=== PATIENT | female | born 1980 | race African-American/Black ===

== ENCOUNTER 2021-10-01 23:38 | Emergency (ER) | payer MEDICAID ==
[~2021-10-01] VITALS: Ht 157.5 cm; Wt 55.0 kg
[2021-10-02 00:17] VITALS: BP 118/75
[2021-10-02 02:33] LABS: CHLORIDE 107 mEq/L (98-107)
[2021-10-02 02:34] LABS: HEMOGLOBIN. 12.7 g/dL (12.0-16.0); MEAN CORPUSCULAR HEMOGLOBIN 33.7 pg (28.0-32.0); MEAN CORPUSCULAR VOLUME 97.8 fL (81.0-99.0); MEAN PLATELET VOLUME 7.9 fl (7.4-10.4); PLATELET 285 x1000/uL (130-400); RED BLOOD CELL COUNT 3.78 mill/uL (4.2-5.4); RED CELL DISTRIBUTION WIDTH 12.5 % (11.6-14.6)
[2021-10-02 02:43] LABS: B-HCG QUANTITATIVE < 1 mIU/mL (<3)
[2021-10-02] MEDS ORDERED: KETOROLAC 30MG/ML VIAL IM ONE (03:15)
[2021-10-02 05:54] LABS: PLATELET ESTIMATE NORMAL
[2021-10-04 07:10] LABS: NEISSERIA GONORRHOEAE NAA Negative (Negative)
== END 2021-10-02 04:07 | disposition home or self-care (01) ==
LOC: ER 23:38
DX: N93.9 Abnormal uterine and vaginal bleeding, unspecified (principal)
CPT/HCPCS: 36415; 80053; 81025; 84702; 85025; 86850; 86900; 86901; 87491; 87591; 96372; 99284; J1885

== ENCOUNTER 2021-10-26 06:02 | Emergency (ER) | payer MEDICAID ==
[~2021-10-26] VITALS: Ht 157.5 cm; Wt 52.0 kg
[2021-10-26] MEDS ORDERED: ONDANSETRON HCL 4MG/2ML INJ IV STA (06:52)
[2021-10-26] MEDS ORDERED: SODIUM CHLORIDE 0.9% 1,000 ML IV ONE (07:00)
[2021-10-26 07:15] LABS: BASOPHILS % 0.3 % (0.0-2.0); HEMATOCRIT. 38.3 % (36.0-48.0); HEMOGLOBIN. 13.1 g/dL (12.0-16.0); LYMPHOCYTES % 7.2 % (20.0-50.0); MEAN CORPUSCULAR HEMOGLOBIN 33.2 pg (28.0-32.0); MEAN CORPUSCULAR VOLUME 97.3 fL (81.0-99.0); MEAN PLATELET VOLUME 8.1 fl (7.4-10.4); MONOCYTES % 4.9 % (2.0-8.0); NEUTROPHILS % 87.6 % (40.0-76.0); PLATELET 296 x1000/uL (130-400); RED BLOOD CELL COUNT 3.94 mill/uL (4.2-5.4); RED CELL DISTRIBUTION WIDTH 12.4 % (11.6-14.6)
[2021-10-26 07:24] LABS: CHLORIDE 110 mEq/L (98-107)
[2021-10-26] MEDS ORDERED: ONDA4TAB50 PO (08:30)
[2021-10-26 09:00] VITALS: BP 119/73
== END 2021-10-26 09:06 | disposition home or self-care (01) ==
LOC: ER 06:02
DX: R55 Syncope and collapse (principal); R11.2 Nausea with vomiting, unspecified; J45.909 Unspecified asthma, uncomplicated
CPT/HCPCS: 36415; 71045; 80053; 82962; 84484; 85025; 93005; 96361; 96374; 99285; J2405; J7030

== ENCOUNTER 2022-06-12 18:09 | Emergency (ER) | payer MEDICAID ==
[~2022-06-12] VITALS: Ht 172.7 cm; Wt 63.0 kg
[~2022-06-12 18:09] MED LIST: ONDA4TAB50 PO
[2022-06-12 19:16] LABS: CLARITY URINE CLEAR (CLEAR); COLOR URINE YELLOW (YELLOW); KETONES URINE NEGATIVE (NEGATIVE); LEUKOCYTE ESTERASE URINE NEGATIVE (NEGATIVE); NITRITE URINE NEGATIVE (NEGATIVE); OCCULT BLOOD URINE 3+ (NEGATIVE); PH URINE 5.5 (4.5-8.0); PROTEIN URINE NEGATIVE (NEGATIVE); SPECIFIC GRAVITY URINE 1.019 (1.005-1.030)
[2022-06-12 20:17] LABS: BASOPHILS % 0.9 % (0.0-2.0); EOSINOPHILS % 7.3 % (0.0-5.0); HEMATOCRIT. 39.6 % (36.0-48.0); HEMOGLOBIN. 13.3 g/dL (12.0-16.0); LYMPHOCYTES % 37.1 % (20.0-50.0); MEAN CORPUSCULAR VOLUME 101.5 fL (81.0-99.0); MEAN PLATELET VOLUME 7.8 fl (7.4-10.4); NEUTROPHILS % 45.7 % (40.0-76.0); PLATELET 277 x1000/uL (130-400); RED CELL DISTRIBUTION WIDTH 13.1 % (11.6-14.6)
[2022-06-12 20:30] LABS: B-HCG QUANTITATIVE < 1 mIU/mL (<3)
[2022-06-12] MEDS ORDERED: IBUPROFEN 400MG TABLET PO ONE (20:45)
[2022-06-12] MEDS ORDERED: ACETAMINOPHEN 325MG TABLET PO ONE (20:45)
[2022-06-12 21:00] VITALS: BP 107/75
[2022-06-12 21:50] LABS: CHLORIDE 105 mEq/L (98-107)
== END 2022-06-12 21:40 | disposition home or self-care (01) ==
LOC: ER 18:09
DX: O26.891 Other specified pregnancy related conditions, first trimester (principal); R10.2 Pelvic and perineal pain; Z3A.01 Less than 8 weeks gestation of pregnancy
CPT/HCPCS: 36415; 76830; 76856; 80053; 81003; 84702; 85025; 86850; 86900; 99284

== ENCOUNTER 2025-02-26 15:01 | Emergency (ER) | payer MEDICAID ==
[~2025-02-26] VITALS: Ht 157.5 cm; Wt 64.0 kg
[2025-02-26 15:13] VITALS: O2SAT 100
[2025-02-26 15:48] LABS: BASOPHILS % 0.6 % (0.0-2.0); EOSINOPHILS % 8.4 % (0.0-5.0); HEMATOCRIT. 39.2 % (36.0-48.0); HEMOGLOBIN. 13.2 g/dL (12.0-16.0); LYMPHOCYTES % 43.7 % (20.0-50.0); MEAN PLATELET VOLUME 8.3 fl (7.4-10.4); MONOCYTES % 7.8 % (2.0-8.0); NEUTROPHILS % 39.5 % (40.0-76.0); PLATELET 249 x1000/uL (130-400); RED BLOOD CELL COUNT 4.01 mill/uL (4.2-5.4); RED CELL DISTRIBUTION WIDTH 13.0 % (11.6-14.6)
[2025-02-26 15:53] LABS: CLARITY URINE CLEAR (CLEAR); COLOR URINE YELLOW (YELLOW); GLUCOSE URINE NEGATIVE (NEGATIVE); KETONES URINE NEGATIVE (NEGATIVE); LEUKOCYTE ESTERASE URINE NEGATIVE (NEGATIVE); NITRITE URINE NEGATIVE (NEGATIVE); OCCULT BLOOD URINE NEGATIVE (NEGATIVE); PH URINE 7.5 (4.5-8.0); PROTEIN URINE NEGATIVE (NEGATIVE); SPECIFIC GRAVITY URINE 1.023 (1.005-1.030); UROBILINOGEN URINE 1.0 E.U./dL (0.2-1.0)
[2025-02-26 16:00] LABS: CREATININE 0.8 mg/dL (0.6-1.0); UREA NITROGEN BLOOD 12 mg/dL (9-23)
[2025-02-26 16:02] LABS: ASPARTATE AMINOTRANSFERASE 15 IU/L (<34); BILIRUBIN DIRECT 0.2 mg/dL (<=3.0); BILIRUBIN TOTAL 0.6 mg/dL (0.1-1.0)
[2025-02-26 16:03] LABS: PROTEIN TOTAL 6.7 g/dL (6.0-8.3)
[2025-02-26 16:04] LABS: B-HCG QUANTITATIVE 1 mIU/mL (<6)
[2025-02-26 16:32] VITALS: BP 120/88; PULSE 52; RESP 19; TEMP 36.7; O2SAT 100
== END 2025-02-26 16:34 | disposition home or self-care (01) ==
LOC: ER 15:01
DX: R11.2 Nausea with vomiting, unspecified (principal); J45.909 Unspecified asthma, uncomplicated; R10.20 Pelvic and perineal pain unspecified side; Z32.00 Encounter for pregnancy test, result unknown
CPT/HCPCS: 36415; 80048; 80076; 81003; 81025; 84702; 85025; 99283